=== PATIENT | male | born 1985 | race Two or more races ===

== ENCOUNTER 2020-04-16 05:28 | Day surgery (SDC) | payer OTHER ==
[2020-04-16] MEDS ORDERED: NEURONTIN600 M1 PO (15:04)
[2020-04-16] MEDS ORDERED: COLACE100 MG PO (15:04)
[2020-04-16] MEDS ORDERED: PERCOCET 5-3251 EACH PO (15:04)
== END 2020-04-16 15:35 | disposition home or self-care (01) ==
LOC: CIR.AMB 05:28
PROVIDERS: ATTEND Surgery
DX: K43.0 Incisional hernia with obstruction, without gangrene (principal); Z20.828 Contact with and (suspected) exposure to other viral communicable diseases

== ENCOUNTER 2020-04-20 20:42 | Emergency (ER) | payer OTHER ==
[~2020-04-20] VITALS: Ht 180.3 cm; Wt 99.8 kg
[~2020-04-20 20:42] MED LIST: COLACE100 MG PO; NEURONTIN600 M1 PO; PERCOCET 5-3251 EACH PO
== END 2020-04-21 09:52 | disposition home or self-care (01) ==
LOC: ER 20:42
DX: G89.18 Other acute postprocedural pain (principal); R10.84 Generalized abdominal pain; K59.09 Other constipation